=== PATIENT | female | born 1955 | race Caucasian/White ===

== ENCOUNTER 2022-11-24 18:49 | Emergency (ER) | payer BC, SELFPAY ==
--- NOTE | 2022-11-24 18:56 | ED.ANIMALBIT ---
HPI - Animal Bite General Chief Complaint: Animal Bite Stated Complaint: dog bite Time Seen by Provider: 11/24/22 18:55 Source: patient Mode of arrival: ambulatory Limitations: no limitations History of Present Illness HPI narrative: Armando is a 59-year-old female patient presenting to the clinic today with complaints of a dog bite. She reports that her [id number] puppy bit her on Wednesday. Took the puppy to the fat this morning and they recommend she get a tetanus shot. Related Data Home Medications Medication Instructions Recorded Confirmed amlodipine 5 mg tablet 5 mg PO DAILY 11/24/22 11/24/22 estradiol 2 mg tablet 2 mg PO DAILY 11/24/22 11/24/22 sertraline 50 mg tablet 50 mg PO DAILY 11/24/22 11/24/22 spironolactone 50 mg tablet 50 mg PO BID 11/24/22 11/24/22 Allergies Allergy/AdvReac Type Severity Reaction Status Date / Time No Known Allergies Allergy Verified 11/24/22 18:53 Review of Systems Review of Systems: Pertinent positives per HPI. Patient denies any fever, chills, rash, headache, visual changes, dizziness, cough, runny nose, sore throat, shortness of breath, chest pain, palpitations, nausea, vomiting, diarrhea, constipation, abdominal pain, or any urinary issues. PMFSH Comments At the time of my signature, I reviewed and agree with the nursing past medical, surgical, social, and family history. There is no relevant family history pertinent to the patient complaint. Exam Narrative: General: Well-developed, well nourished, in no apparent distress Head: Normocephalic, atraumatic. Cardio: Regular rate and rhythm, s1 and s2 normal, no murmur appreciated. Resp: Clear to auscultation bilaterally, no rhonchi, rales, wheezing or rubs. Integumentary: [place], warm, and dry, puncture wound with mild redness to the right proximal thumb Course Course Emergency Course: Portions of this record may have been created with voice recognition software. Level of Care: Express Care Visit Vital Signs Vital signs: Vital signs reviewed MDM - Animal Bite MDM Narrative Medical decision making narrative: At the time of visit patient is resting on the exam table. Tetanus shot was given in the clinic. Will send in a 5 day course of Augmentin for the patient. Supportive measures were discussed with the patient she voiced understanding discharge instructions and agrees to treatment plan. Differential Diagnosis Differential diagnosis: Likely bite by animal and dog bite Discharge Plan Discharge Clinical Impression: Dog bite Qualifiers: Encounter type: initial encounter Qualified Code(s): W54.0XXA - Bitten by dog, initial encounter Patient Disposition: Home, Self-Care Condition: Stable Instructions: Antibiotic Form, Animal Bite (ED) Additional Instructions: Tetanus shot updated in the clinic today. Keep wound clean and dry Take Augmentin 1 tab twice daily x5 days Increase fluids and stay well hydrated May take Tylenol/Motrin as needed for pain or fever Follow-up with your PCP in 3-5 days if symptoms persist or sooner if needed Go to the emergency room if you develop high fever not controlled by Tylenol or Motrin, lethargy, weakness, confusion, increase in pain, increase in swelling, redness, streaking, or purulent drainage Prescriptions: New amoxicillin-pot clavulanate 875-125 mg tablet 1 tablet PO Q12H 5 Days Qty: 10 0RF No Action amlodipine 5 mg tablet 5 mg PO DAILY estradiol 2 mg tablet 2 mg PO DAILY sertraline 50 mg tablet 50 mg PO DAILY spironolactone 50 mg tablet 50 mg PO BID Follow-up/Referrals: UNKNOWN,DOCTOR [Non-Staff] - Time of Disposition: 19:16 Quality NIHSS Nursing Documentation ED NIHSS nursing documentation: reviewed/agree
[2022-11-24 19:13] VITALS: BP 144/68; PULSE 81; RESP 16; TEMP 36.9; O2SAT 98
[2022-11-24] MEDS: TETANUS,DIPHTHERIA,AC PERTUSSIS ADULT (0.5 ML) BOOSTRIX IM (19:13)
== END 2022-11-24 19:18 | disposition home or self-care (01) ==
PROVIDERS: Emergency Provider Nurse Practitioner Family
DX: S61.031A Puncture wound without foreign body of right thumb without damage to nail, initial encounter (principal); W54.0XXA Bitten by dog, initial encounter; Z23 Encounter for immunization; I10 Essential (primary) hypertension; Z85.828 Personal history of other malignant neoplasm of skin; F41.9 Anxiety disorder, unspecified
CPT/HCPCS: 90471; 90715; 99213; G0463